=== PATIENT | female | born 1995 | race Caucasian/White ===

== ENCOUNTER 2017-12-05 22:29 | Emergency (ER) | payer BC ==
[~2017-12-05] VITALS: Ht 162.6 cm; Wt 57.6 kg
[~2017-12-05 22:29] MED LIST: DICL50TA3 PO
[2017-12-05] MEDS ORDERED: diphenhydrAMINE 50 MG/ML INJ (BENADRYL) IM ONE (23:15)
[2017-12-05] MEDS ORDERED: KETOROLAC 60 MG/2 ML VIAL IM ONE (23:15)
[2017-12-05] MEDS ORDERED: ORPHENADRINE 60 MG/2 ML (NORFLEX) AMP IM ONE (23:15)
--- NOTE | 2017-12-05 23:42 | ED Headache ---
General Chief Complaint: Head/Cervical Problems Stated Complaint: ABD PAIN, MIGRANE Nursing Triage Note: PT PRESENTS TO ER WITH COMPLAINT OF MIGRAINE THAT STARTED TODAY. ALSO COMPLAINING OF NAUSEA Nursing Sepsis Screen: No Definite Risk Source: patient Exam Limitations: no limitations History of Present Illness Date Seen by Provider: December 05, 2017 Time Seen by Provider: 22:59 Initial Comments C/O MIGRAINE SINCE NOON HAS HAD NAUSEA, NO VOMITING NO FEVER/URI SYMPTOMS NO VISION CHANGES NO NECK STIFFNESS, BUT ALWAYS HAS SORE MUSCLES IN HER NECK WITH MIGRAINES NO PARESTHESIAS OR MOTOR DEFICITS HAS HISTORY OF SAME MULTIPLE TIMES AND THIS IS NO DIFFERENT. LAST TIME WAS ONE DAY LAST WEEK TOOK IBUPROFEN AT 1300, NAPROXEN AT 1900 AND ZOFRAN AT 1900. IS STILL NAUSEATED AND HEADACHE IS STILL PRESENT. PT HAD 2 BEERS YESTERDAY, NONE TODAY ATE DONUTS AND PIZZA TONIGHT, AND HAS HAD WATER AND SPRITE TONIGHT LMP 11/22/17. NORMAL. NO CONTROL NO PCP--STATES SHE IS A RECENT [employer] GRADUATE FROM [facility] Allergies and Home Medications Allergies Coded Allergies: No Known Drug Allergies (Unverified , 07/07/14) Home Medications Diclofenac Potassium 50 Mg Tablet, 50 MG PO Q8H PRN for rib pain Prescribed by: ESVIN PADGETT on 07/07/14 [id number] Patient Home Medication List Home Medication List Reviewed: Yes Review of Systems Constitutional: no symptoms reported Eyes: No Symptoms Reported; Denies Photophobia Ears, Nose, Mouth, Throat: no symptoms reported Respiratory: no symptoms reported Cardiovascular: no symptoms reported Gastrointestinal: see HPI; No abdominal pain; nausea; No vomiting Genitourinary: no symptoms reported : No LMP: November 22, 2017 Musculoskeletal: see HPI Skin: no symptoms reported Psychiatric/Neurological: See HPI, Headache; Denies Numbness, Denies Paresthesia, Denies Weakness Past Itsfddi-[id number]-Kjkygb Hx Patient Social History Alcohol Use: Regular Use (AT LEAST 5 DRINKS/WEEK) Recreational Drug Use: No Smoking Status: Current Someday Smoker Type Used: Cigarettes Recent Foreign Travel: No Contact w/Someone Who Travel: No Recent Infectious Disease Expo: No Immunizations Up To Date Tetanus Booster (TDap): Unknown PED Vaccines UTD: Yes Past Medical History Surgeries: Yes (LEFT KNEE SCOPE) Orthopedic Respiratory: No Cardiac: No Neurological: Yes Headaches /Migraines Reproductive Disorders: No Female Reproductive Disorders: Denies Sexually Transmitted Disease: No Gastrointestinal: No Musculoskeletal: No Endocrine: No Cancer: No Psychosocial: Yes ADD/ADHD Integumentary: No Blood Disorders: No Physical Exam Vital Signs Capillary Refill : Less Than 3 Seconds General Appearance: WD/WN, no apparent distress HEENT: PERRL/EOMI, normal ENT inspection, TMs normal, pharynx normal Neck: full range of motion, supple, other (MILD CERVICAL PARAVERTEBRAL MUSCLE TENDERNESS. NO RIGIDITY OR MENINGISMUS) Cardiovascular: regular rate, rhythm, no murmur Respiratory: normal breath sounds Gastrointestinal: soft Back: normal inspection Extremities: normal inspection Psychiatric: alert, oriented x 3 Cra[place] Nerves: normal hearing, normal speech, PERRL Coordination/Gait: normal gait Motor/Sensory: no motor deficit, no sensory deficit, no pronator drift Skin: normal color, warm/dry; No rash Progress/Results/Core Measures Results/Orders My Orders Orders - DORY MIGUEL DO Ketorolac Injection (Toradol Injection) (12/05/17 23:15) Orphenadrine Injection (Norflex Injectio (12/05/17 23:15) Diphenhydramine Injection (Benadryl Inje (12/05/17 23:15) Im/Sub-Q Injection Non-Ab Ed (12/05/17 ) Medications Given in ED Vital Signs/I&O Blood Pressure Mean: 119 Progress Progress Note : Progress Note SYMPTOMS IMPROVED AT DISMISSAL Departure Impression Primary Impression: Headache Disposition: 01 HOME, SELF-CARE Condition: Improved Departure-Patient Inst. Referrals: NO,LOCAL PHYSICIAN (PCP/Family) Primary Care Physician Patient Instructions: Headache, Adult (DC) Add. Discharge Instructions: LOTS OF CLEAR LIQUIDS TYLENOL 1 GRAM/ MOTRIN 800 MG 4 TIMES A DAY NEEDED FOR PAIN FOLLOW UP WITH LOCAL DR OF CHOICE IN 1-2 DAYS IF NO BETTER All discharge instructions reviewed with patient and/or family. Voiced understanding. DORY MIGUEL DO December 05, 2017 23:42
[2017-12-05 23:53] VITALS: BP 152/102
== END 2017-12-05 23:53 | disposition home or self-care (01) ==
LOC: EDUNIT# 22:29 → ER 22:31
DX: R51 Headache (principal); F90.9 Attention-deficit hyperactivity disorder, unspecified type; Z98.890 Other specified postprocedural states
CPT/HCPCS: 96372; 99284